=== PATIENT | female | born 1945 | race Caucasian/White ===

== ENCOUNTER 2019-07-29 08:29 | Day surgery (SDC) | payer OTHER ==
--- OUTSIDE RECORDS SUMMARY | 2019-07-29 08:34 | XMS REPORT | Encounter Summary ---
:1945 Author Care Team Providers Name Role Phone Remi Camargo MD Primary Care Provider [phone] Willem Méndez MD Primary Care Provider [phone] Reason for Visit Follow Up Visit Instructions 1. Atypical chest pain CT, chest, w/ contrast 2. Lipoma of back general surgery referral 3. Hypertensive disorder elevated blood pressure: care instructions Discussion Note: None recorded. Plan of Care Reminders Provider Appointments Return to on or around Willem Méndez MD Office 07/21/2019 Lab None recorded. Referral General 07/03/2019 Cassius Chatterjee DO Surgery Referral Procedures None recorded. Surgeries None recorded. Imaging CT, Chest, 06/11/2019 [place] W/ Contrast [facility] (Labs) (Xray) Medications Name Start Date Bystolic 10 mg tablet Take 1 tablet every day by oral route. lisinopril 20 mg tablet Take 1 tablet every day by oral route. omeprazole 40 mg capsule,delayed release Take 1 capsule every day by oral route before meals for 30 days. Medications Administered None recorded. Vitals Height Weight BMI Blood Pressure 64 in 181 lbs 16 oz 31.2 kg/m2 191/95 mm[Hg] Results Lab Results None recorded. Allergies Code Code System Name Reaction Severity Status Onset 2551 RxNorm Ciprofloxacin Nausea Mild to Active Moderate NKDA Problems Name Status Onset Date Source Left Upper Quadrant Pain Active 04/20/2019 Lipoma of Back Active 06/11/2019 Herpes Zoster Active Encounter Hypertensive Disorder Active Encounter Urinary Tract Infectious Disease Active Encounter Dysuria Active Encounter Procedures Date Name Performed by 07/08/2014 Insert/place Heart Catheter Information not available Knee Arthroscopy/surgery Information not available Appendectomy Information not available Cholecystectomy Information not available Tonsillectomy Information not available 06/11/2019 CT, Chest, W/ Contrast [facility] (Labs) ( Xray) [address] [place] [id number] (Work Place) Vaccine List None recorded. Social History Tobacco Smoking Status Never Smoker Past Encounters 06/11/2019 Atypical Chest Pain; Lipoma of Back; Hypertensive Disorder Willem Méndez MD: [address] [place] [address] [address], [place] [address], Ph. History of Present Illness Note: CC left sided chest pain<div>hpi this is pain I did ct abd and was negative pt still having daily pain starting in her back on the left side and radiating around to the chest below the left breast painful to breathe</ div><div>CC lipoma</div><div>hpi has had for yrs inleft post mid back is getting larger</div><div>ros</div><div> baljit above</div><div>cv neg</div><div>resp above</div& gt;Review of Systems: ROS as noted in the HPI Review of Systems None recorded. Physical Exam Notes: vs bp up <div>gen nad</div><div>lipoma on back below left scapula</div><div>lungs clear</div>
--- OUTSIDE RECORDS SUMMARY | 2019-07-29 08:34 | XMS REPORT | Encounter Summary ---
:1945 Author Care Team Providers Name Role Phone Remi Baker MD Primary Care Provider [phone] Reason for Visit Sick Instructions 1. Acute bronchitis Zithromax Z-Julius 250 mg tablet 2. Essential hypertension Discussion Note RTC for any other concerns Patient educational handouts: No information available. Plan of Care Patient Instructions medication as directed; push fluids and ensure rest; keep f/u with dr. baker and continue to monitor blood pressure Reminders Provider Appointments None recorded. Lab None recorded. Referral None recorded. Procedures None recorded. Surgeries None recorded. Imaging None recorded. Medications Name Start Date Bystolic 10 mg tablet Take 1 tablet every day by oral route. lisinopril 20 mg tablet Take 1 tablet every day by oral route. omeprazole 40 mg capsule,delayed release Take 1 capsule every day by oral route before meals for 30 days. Zithromax Z-Julius 250 mg tablet TAKE 2 TABLETS (500 MG) BY ORAL ROUTE ONCE DAILY FOR 1 DAY THEN 1 TABLET (250 MG) BY ORAL ROUTE ONCE DAILY FOR 4 DAYS Medications Administered None recorded. Vitals Height Weight BMI Blood Pressure 64 in 186 lbs 16 oz 32.1 kg/m2 (1) 183/79 mm[Hg] (2) 178/76 mm[Hg] Lab Results None recorded. Allergies Code Code System Name Reaction Severity Status Onset 2551 RxNorm Ciprofloxacin Nausea Mild to Active Moderate NKDA Problems Name Status Onset Date Source Herpes Zoster Active Encounter Hypertensive Disorder Active Encounter Urinary Tract Infectious Disease Active Encounter Dysuria Active Encounter Procedures Date Name Performed by 07/08/2014 Insert/[address] Heart Catheter Information not available Knee Arthroscopy/surgery Information not available Appendectomy Information not available Cholecystectomy Information not available Tonsillectomy Information not available Vaccine List None recorded. Social History Smoking Status Never Smoker Past Encounters 12/18/2018 Acute Bronchitis; Essential Hypertension Talia Barcenas SPECIAL EDUCATION TUTOR: [address] [facility], [address], [place] [address], Ph. History of Present Illness Note: pt to clinic for cough, congestion x 1 week; productive cough with thick colored phlegm; she states started as sore itchy throat; denies fever; she has been taking otc robitussin dm as needed; hx of htn; has f/u with dr. baker next week Review of Systems General Adult ROS Reported By: Patient Constitutional: Constitutional: no fever Cardiovascular: Cardiovascular: no chest pain Respiratory: Respiratory: no shortness of breath, cough, wheezing Gastrointestinal: Gastrointestinal: no abdominal pain, no vomiting, no diarrhea Physical Exam Yulissa Brief Adult Exam - M/F Reported By: Patient Constitutional: General Appearance: healthy-appearing, well-nourished, well-developed. Level of Distress: NAD. Ambulation: ambulating normally Psychiatric: Mental Status: active and alert Lungs: Auscultation: expiratory wheezing; right upper lobe Cardiovascular: Heart Auscultation: RRR, normal S1, normal S2, no murmurs Musculoskeletal: Edema absent
--- OUTSIDE RECORDS SUMMARY | 2019-07-29 08:34 | XMS REPORT | Encounter Summary ---
:1945 Author Care Team Providers Name Role Phone Remi Camargo MD Primary Care Provider [phone] Willem Méndez MD Primary Care Provider [phone] Reason for Visit sore throat; headache Instructions 1. Acute upper respiratory infection Medrol (Julius) 4 mg tablets in a dose pack 2. Hypertensive disorder Discussion Note RTC for any other concerns Patient educational handouts: No information available. Plan of Care Patient Instructions rec zyrtec daily; medrol dose julius as directed; push fluids Reminders Provider Appointments None recorded. Lab None recorded. Referral None recorded. Procedures None recorded. Surgeries None recorded. Imaging None recorded. Medications Name Start Date Bystolic 10 mg tablet Take 1 tablet every day by oral route. lisinopril 20 mg tablet Take 1 tablet every day by oral route. Medrol (Julius) 4 mg tablets in a dose pack Take as directed. omeprazole 40 mg capsule,delayed release Take 1 capsule every day by oral route before meals for 30 days. Medications Administered None recorded. Vitals Height Weight BMI Blood Pressure 64 in 187 lbs 1 oz 32.1 kg/m2 (1) 180/86 mm[Hg] (2) 166/82 mm[Hg] Lab Results None recorded. Allergies Code [...] available Vaccine List None recorded. Social History Tobacco Smoking Status Never Smoker Past Encounters 03/19/2019 Acute Upper Respiratory Infection; Hypertensive Disorder Talia Barcenas CLERK OF COURT: [address] [facility], [address], [place] [address], Ph. History of Present Illness Note: pt to clinic for congestion, sinus pressure/headache, sore throat x 4- 5 days; denies cough, fever; she has been taking coricidin x 3 days with no change in symptoms; she reports clear mucous Review of Systems General Adult ROS Reported By: Patient Constitutional: Constitutional: no fever ENMT: Ears: no ear pain. Nose: nose/sinus problems. Mouth/Throat: sore throat Cardiovascular: Cardiovascular: no chest pain Respiratory: Respiratory: no cough, no wheezing, no shortness of breath Gastrointestinal: Gastrointestinal: no abdominal pain, no vomiting, no diarrhea Endocrine: Endocrine: no fatigue Allergic/Immunologic: Allergy/Immunologic: no runny nose, sinus pressure Physical Exam Yulissa Brief Adult Exam - M/F Reported By: Patient Constitutional: General Appearance: healthy-appearing, well-nourished, well-developed. Level of Distress: NAD. Ambulation: ambulating normally Psychiatric: Mental Status: active and alert ENMT: Ears: EACs clear, TMs clear. Nose: nasal passages clear. Oropharynx: moist mucous membranes, no exudates, erythema Neck: Lymph Nodes: no cervical LAD Lungs: Auscultation: breath sounds normal Cardiovascular: Heart Auscultation: RRR, normal S1, normal S2, no murmurs
--- OUTSIDE RECORDS SUMMARY | 2019-07-29 08:34 | XMS REPORT | Encounter Summary ---
:1945 Author Care Team Providers Name Role Phone Remi Camargo MD Primary Care Provider [phone] Willem Méndez MD Primary Care Provider [phone] Reason for Visit Follow Up Visit Instructions 1. Left upper quadrant pain CT, abdomen + pelvis, w/ contrast CBC w/ auto diff CMP, serum or plasma urinalysis, complete Discussion Note: None recorded.Patient educational handouts: No information available. Plan of Care Reminders Provider Appointments Return to on or around Willem Méndez MD Office 07/21/2019 Lab CBC W/ Auto 04/20/2019 [place] Diff [facility] (Labs) (Xray) CMP, Serum 04/20/2019 [place] or Plasma [facility] (Labs) (Xray) Urinalysis, 04/20/2019 [place] Complete [facility] (Labs) (Xray) Referral None recorded. Procedures None recorded. Surgeries None recorded. Imaging CT, Abdomen 04/20/2019 [place] + Pelvis, W/ Contrast [facility] (Labs) (Xray) Medications Name Start Date Bystolic 10 mg tablet Take 1 tablet every day by oral route. lisinopril 20 mg tablet Take 1 tablet every day by oral route. omeprazole 40 mg capsule,delayed release Take 1 capsule every day by oral route before meals for 30 days. Medications Administered None recorded. Vitals Height Weight BMI Blood Pressure 64 in 184 lbs 31.6 kg/m2 179/87 mm[Hg] Results Lab Results None recorded. Allergies Code Code System Name Reaction Severity Status Onset 2551 RxNorm Ciprofloxacin Nausea Mild to Active Moderate NKDA Problems Name Status Onset Date Source Left Upper Quadrant Pain Active 04/20/2019 Herpes Zoster Active Encounter Hypertensive Disorder Active Encounter Urinary Tract Infectious Disease Active Encounter Dysuria Active Encounter Procedures Date Name Performed by 07/08/2014 Insert/[address] Heart Catheter Information not available Knee Arthroscopy/surgery Information not available Appendectomy Information not available Cholecystectomy Information not available Tonsillectomy Information not available 04/20/2019 CT, Abdomen + Pelvis, W/ Contrast [facility] (Labs) (Xray) [address] [facility], [place] [id number] (Work Place) Vaccine List None recorded. Social History Tobacco Smoking Status Never Smoker Past Encounters 04/20/2019 Left Upper Quadrant Pain Willem Méndez MD: [address] [place] [address] [address], [place] [address], Ph. History of Present Illness Note: CC chronic LUQ pain<div>hpi has had for some time and had US that was neg is concerned itmight be her kidney as it goes to the back at times& lt;/div><div>ros</div><div>gen healthy</div><div& gt;cv neg</div><div>resp neg</div><div>gi no bm issues does not have appendix or gall bladder</div>Review of Systems: ROS as noted in the HPI Review of Systems None recorded. Physical Exam Notes: vs wnl<div>gen nad</div><div>heart wnl</div><div>lungs wnl</div><div >abd uncomfortable LUQ no masses or acute tenderness</div>
--- OUTSIDE RECORDS SUMMARY | 2019-07-29 08:34 | XMS REPORT | Encounter Summary ---
:1945 Author Care Team Providers Name Role Phone Remi Camargo MD Primary Care Provider [phone] Willem Méndez MD Primary Care Provider [phone] Reason for Visit New Patient Instructions 1. Lipoma of back excision, tumor, soft tissue of back/flank (SURG) 2. Pre-surgery evaluation cardiac clearance - Patient needs a cardiac clearance prior to surgery. Please schedule patient. Fax clearance to [phone]. Thank you. Discussion Note: None recorded.Patient educational handouts: No information available. Plan of Care Patient Instructions Stop all blood thinners 5 days prior to procedure. Nothing by mouth after midnight. Patient must have a responsible licensed maintenance truck driver to accompany home after surgery. Only take blood pressure medication the morning of the procedure with sip of water. [facility] scheduling department will contact to schedule pre op date & time. [facility] pre op nurse will inform you time of arrival Reminders Provider Appointments Return to on or around Willem Méndez MD Office 07/21/2019 Lab None recorded. Referral None recorded. Procedures None recorded. Surgeries Excision, 07/17/2019 Tumor, Soft Tissue of Back/flank (SURG) Imaging None recorded. Medications Name Start Date Bystolic 10 mg tablet Take 1 tablet every day by oral route. lisinopril 20 mg tablet Take 1 tablet every day by oral route. omeprazole 40 mg capsule,delayed release Take 1 capsule every day by oral route before meals for 30 days. Medications Administered None recorded. Vitals Height Weight BMI Blood Pressure 5 ft 4 in 182 lbs 31.2 kg/m2 170/80 mm[Hg] Results Lab Results Date Name Specimen Result Interpretation Description Value Range Status Address 06/18/2019 Creatinine, Normal Creatinine 0.7 0.50-0.90 Final [place] Serum or mg/dL mg/dL [facility] (Lab): [address] [facility] 06/18/2019 GFR, Normal Glomerular >60.00 Final [place] [facility] (eGFR), Serum Rate [facility] (Lab): [address] [facility] Allergies Code Code System Name Reaction Severity [...] Tobacco Smoking Status Never Smoker Past Encounters 07/16/2019 Lipoma of Back; Pre-surgery Evaluation Cassius Chatterjee, DO: [address] [facility] [address], [place] [address], Ph. [phone] History of Present Illness Skin Lesion Reported By: Patient HPI: Location: back. Quality: painful, tender. Severity: moderate. Duration: not sure. Onset/Timing: gradual. Context: no known trigger. Associated Symptoms: no fever, no cold symptoms, no nausea, no vomiting, no diarrhea, no urinary symptoms, no skin flakes, no scabbing, no bruising, no draining, no lesions multiplying, no lesions spreading Review of Systems General Surgery ROS Reported By: Patient Constitutional: Constitutional: no fever, no night sweats, no significant weight gain, no significant weight loss, no exercise intolerance Eyes: Eyes: no dry eyes, no irritation, no vision change ENMT: Ears: no difficulty hearing, no ear pain. Nose: no frequent nosebleeds, no nose/sinus problems. Mouth/Throat: no sore throat, no bleeding gums, no snoring, no dry mouth, no mouth ulcers, no oral abnormalities, no teeth problems, No Post Nasal Dripping, Constantly clearing the throat, hiccups, itching throat, (normal) weak voice: constant Respiratory: Respiratory: no cough, no wheezing, no shortness of breath, no coughing up blood Cardiovascular: Cardiovascular: no chest pain, no arm pain on exertion, no shortness of breath when walking, no shortness of breath when lying down, no palpitations, no known heart murmur Gastrointestinal: Gastrointestinal: no abdominal pain, no vomiting, normal appetite, no diarrhea, not vomiting blood Genitourinary: Genitourinary: no incontinence, no difficulty urinating, no hematuria, no increased frequency Musculoskeletal: Musculoskeletal: no muscle aches, no muscle weakness, no arthralgias/joint pain, no back pain, no swelling in the extremities Integumentary: Skin: no abnormal mole, no jaundice, no rashes Neurologic: Neurologic: no loss of consciousness, no weakness, no numbness, no seizures, no dizziness, no headaches Physical Exam General Surgery Exam ([place]) Reported By: Patient Head: Head: normocephalic, atraumatic Neck: Neck: no enlargement, no jugular venous distention, no lymphadenopathy Breast/Thorax: Breast: unlabored Cardiovascular: Heart Auscultation: regular rate and rhythm, no murmurs, no gallops, no rubs Lungs: CTAB breath sounds normal, good air movement, clear to auscultation, no wheezing, no rales/crackles, no rhonchi Back: Lumbar / Lumbosacral Spine normal flexion, normal extension, no spasms, palpation tenderness none; Lipoma of left mid back Abdomen: Inspection and Palpation: soft, non-distended, no tenderness, no masses. Hernia: none palpable Neurologic: Cranial Nerves: grossly intact
--- OUTSIDE RECORDS SUMMARY | 2019-07-29 08:34 | XMS REPORT | Encounter Summary ---
:1945 Author Reason for Visit possible UTI Instructions 1. Urinary tract infectious disease urinalysis, dipstick Macrobid 100 mg capsule Discussion Note RTC for any other concerns Patient educational handouts: No information available. Plan of Care Patient Instructions medication as directed; push fluids and ensure rest Reminders Provider Appointments None recorded. Lab Urinalysis, In-House Results Dipstick 09/30/2018 Referral None recorded. Procedures None recorded. Surgeries None recorded. Imaging None recorded. Medications Name Start Date Bystolic 10 mg tablet Take 1 tablet every day by oral route. lisinopril 20 mg tablet Take 1 tablet every day by oral route. Macrobid 100 mg capsule Take 1 capsule every 12 hours by oral route as directed for 7 days. omeprazole 40 mg capsule,delayed release Take 1 capsule every day by oral route before meals for 30 days. Medications Administered None recorded. Vitals Height Weight BMI Blood Pressure 64 in 185 lbs 31.8 kg/m2 161/91 mm[Hg] Lab Results None recorded. Allergies Code [...] History Smoking Status Never Smoker Past Encounters 09/30/2018 Urinary Tract Infectious Disease Talia Barcenas REGISTERED NURSE RENAL: [address] [facility], [address], [place] [address], Ph. History of Present Illness Note: pt to clinic for back pain, frequency of urination, and dysuria x 2 days; she has taken azo Review of Systems General Adult ROS Reported By: Patient Constitutional: Constitutional: no fever Cardiovascular: Cardiovascular: no chest pain Respiratory: Respiratory: no cough, no wheezing, no shortness of breath Gastrointestinal: Gastrointestinal: no abdominal pain, no vomiting, no diarrhea Genitourinary: Genitourinary: difficulty urinating, increased urinary frequency Endocrine: Endocrine: no fatigue Physical Exam Yulissa Brief Adult Exam - M/F Reported By: Patient Constitutional: General Appearance: healthy-appearing, well-nourished, well-developed. Level of Distress: NAD. Ambulation: ambulating normally Psychiatric: Mental Status: active and alert Lungs: Auscultation: breath sounds normal Cardiovascular: Heart Auscultation: RRR, normal S1, normal S2, no murmurs Abdomen: Bowel Sounds: normal. Inspection and Palpation: soft, non-distended, no guarding, no CVA tenderness, suprapubic tenderness
--- OUTSIDE RECORDS SUMMARY | 2019-07-29 08:34 | XMS REPORT ---
:1945 [facility] Zenon Osborne [address] [place] [address] Care Team Providers Name Role Phone EUSEBIA WEBBER Primary Care Provider Unavailable EUSEBIA WEBBER Unavailable Unavailable Problems This patient has no known problems. Allergies, Adverse Reactions, Alerts This patient has no known allergies or adverse reactions. Medications This patient has no known medications. Encounters Start End Encounter Admission Attending Care Care Encounter Date/Time Date/Time Type Type Clinicians Facility Department ID 2017-09-30 2017-09-30 Outpatient [facility] [id number] 21:17:00 21:17:00 EUSEBIA Results Test Description Test Time Test Comments Text Results Atomic Results Result Comments Comprehensive Metabolic Panel 2017-09-30 22:44:00 Test Item Value Reference Range Comments Sodium (test code=NA) 142 mmol/L 135-145 Potassium (test code=K) 4.3 mmol/L 3.5-5.1 Chloride (test code=CL) 101 mmol/L 98-105 Carbon Dioxide (test 26 mmol/L 22-29 code=CO2) Glucose (test code=GLU) 94 mg/dL 70-115 Blood Urea Nitrogen (test 10 mg/dL 8-23 code=BUN) Creatinine (test code=CREAT) 0.6 mg/dL 0.5-0.9 Calcium (test code=CA) 9.9 mg/dL 8.3-10.5 Prot Total (test code=TP) 7.0 g/dL 6.4-8.3 Albumin (test code=ALB) 4.4 g/dL 3.5-5.2 A/G Ratio (test 1.7 Ratio code=AGRATIO) Globulin (test code=GLOB) 2.6 2.9-3.1 Bili Total (test code=TBIL) 0.4 mg/dL 0.1-0.9 Alk Phos (test code=APHOS) 99 U/L 35-104 AST (test code=AST) 21 U/L 1-32 ALT (test code=ALT) 23 U/L 1-33 BUN/Creatinine Ratio (test 16.7 code=BCRATIO) Anion Gap (test code=AGAP) 15 mmol/L 7-16 Estimated GFR (test >60 mL/min/1.73m2 eGFR (estimated Glomerular code=GFR) Filtration Rate) is an estimated value,calculated from the patient's serum creatinine using the MDRD equation.It is NOT the patient's actual GFR. The eGFR provides a more clinicallyuseful measure of kidney disease than serum creatinine alone.This calculation takes sex and race into account, if the informationis provided. If the race is not provided, and the patient isAfrican-Macedonian, multiply by 1.212. If sex is not provided, and thepatient is female, multiply by 0.742. Results for patients <18 years ofage have not been validated by the MDRD study and should be interpretedwith caution.eGFR Result Interpretation:eGFR > or=60 is in the Normal RangeeGFR < 60 may mean kidney diseaseeGFR < 15 may mean kidney failureRanges recommended by the National Kidney Foundation,http://nkdep.nih.go v Lipid [id number] 22:44:00 Test Item Value Reference Range Comments Cholesterol (test 262 mg/dL 0-200 code=CHOL) Triglycerides (test 119 mg/dL 9-200 code=TRIG) HDL (test code=HDL) 75 mg/dL 50-60 Chol/HDL (test 3.5 Ratio 0.0-4.4 code=CHOLPHDL) LDL, Calculated (test 163 mg/dL 0-130 (NOTE)RISK OF HEART code=LDLC) DISEASEPublished by [place] Heart AssociationAnalyte Optimal Boderline Increased RiskCHOL <200 200-239 >240TRIG <150 150-199 >200HDL Male: >60 <40HDL Female: >60 <50LDL <100 130-159 >160LDL NEAR OPTIMAL IS 100-129 VLDL (test code=VLDL) 24 mg/dL 5-40 LDL/HDL (test code=LDLPHDL) 2 [id number] 22:44:00 Test Item Value Reference Range Comments NT ProBnp (test code=PBNP) 43 pg/mL 0-124 CBC with [id number] 22:44:00 Test Item Value Reference Range Comments WBC (test code=WBC) 4.1 K/cumm 4.4-10.5 RBC (test code=RBC) 5.01 M/cumm 3.75-5.20 Hemoglobin (test code=HGB) 14.0 gm/dL 12.2-14.8 Hematocrit (test code=HCT) 45.0 % 36.5-44.4 MCV (test code=MCV) 89.8 fL 80-100 MCH (test code=MCH) 28.0 pg 27.0-32.5 MCHC (test code=MCHC) 31.2 g/dL 32.0-37.5 RDW (test code=RDW) 13.2 % 11.5-14.5 Platelet Count (test code=PLTCT) 346 K/cumm 140-440 MPV (test code=MPV) 10.3 fL Diff Method (test code=DIFFM) Auto Neutrophil (test code=NEUT) 58.2 % 36-70 Lymphocyte (test code=LYMPH) 30.5 % 12-44 Monocyte (test code=MONO) 8.0 % 0-11 Eosinophil (test code=EOS) 2.0 % 0-7 Basophil (test code=BASO) 1.3 % 0-2 Neutro Abs (test code=ANEUT) 2.4 K/cumm 1.6-7.4 Lymph Abs (test code=ALYMPH) 1.3 K/cumm 0.5-4.6 [place] Abs (test code=AMONO) 0.3 K/cumm 0.0-1.2 Eos Abs (test code=AEOS) 0.08 K/cumm 0.00-0.74 Baso Abs (test code=ABASO) 0.1 K/cumm 0.00-0.21 T3 [id number] 23:59:00 Test Item Value Reference Range Comments T3, Uptake (test code=T3U) 32 % 28-41 Hepatic Function [id number] 23:52:00 Test Item Value Reference Range Comments Prot Total (test code=TP) 7.1 g/dL 6.4-8.3 Albumin (test code=ALB) 4.3 g/dL 3.5-5.2 A/G Ratio (test code=AGRATIO) 1.5 Ratio Globulin (test code=GLOB) 2.8 2.9-3.1 Bili Total (test code=TBIL) 0.5 mg/dL 0.1-0.9 Bili Direct (test code=DBIL) <0.2 mg/dL 0.0-0.3 Bili Indirect (test code=IBIL) 0.4 Alk Phos (test code=APHOS) 97 U/L 35-104 AST (test code=AST) 22 U/L 1-32 ALT (test code=ALT) 21 U/L 1-33 Lipid [id number] 23:52:00 Test Item Value Reference Range Comments Cholesterol (test 262 mg/dL 0-200 code=CHOL) Triglycerides (test 155 mg/dL 9-200 code=TRIG) HDL (test code=HDL) 67 mg/dL 50-60 Chol/HDL (test 3.9 Ratio 0.0-4.4 code=CHOLPHDL) LDL, Calculated (test 164 0-130 (NOTE)RISK OF HEART code=LDLC) DISEASEPublished by [place] Heart AssociationAnalyte Optimal Boderline Increased RiskCHOL <200 200-239 >240TRIG <150 150-199 >200HDL Male: >60 <40HDL Female: >60 <50LDL <100 130-159 >160LDL NEAR OPTIMAL IS 100-129 VLDL (test code=VLDL) 31 mg/dL 5-40 LDL/HDL (test code=LDLPHDL) 2 Comprehensive Metabolic [id number] 23:52:00 Test Item Value Reference Range Comments Sodium (test code=NA) 137 mmol/L 135-145 Potassium (test code=K) 4.1 mmol/L 3.5-5.1 Chloride (test code=CL) 99 mmol/L 98-105 Carbon Dioxide (test 27 mmol/L 22-29 code=CO2) Glucose (test code=GLU) 102 mg/dL 70-115 Blood Urea Nitrogen 11 mg/dL 8-23 (test code=BUN) Creatinine (test 0.7 mg/dL 0.5-0.9 code=CREAT) Calcium (test code=CA) 10.0 mg/dL 8.3-10.5 Prot Total (test 7.1 g/dL 6.4-8.3 code=TP) Albumin (test code=ALB) 4.3 g/dL 3.5-5.2 A/G Ratio (test 1.5 Ratio code=AGRATIO) Globulin (test 2.8 2.9-3.1 code=GLOB) Bili Total (test 0.5 mg/dL 0.1-0.9 code=TBIL) Alk Phos (test 97 U/L 35-104 code=APHOS) AST (test code=AST) 22 U/L 1-32 ALT (test code=ALT) 21 U/L 1-33 BUN/Creatinine Ratio 15.7 (test code=BCRATIO) Anion Gap (test 11 mmol/L 7-16 code=AGAP) Estimated GFR (test >60 mL/min/1.73m2 eGFR (estimated Glomerular code=GFR) Filtration Rate) is an estimated value,calculated from the patient's serum creatinine using the MDRD equation.It is NOT the patient's actual GFR. The eGFR provides a more clinicallyuseful measure of kidney disease than serum creatinine alone.This calculation takes sex and race into account, if the informationis provided. If the race is not provided, and the patient isAfrican-Macedonian, multiply by 1.212. If sex is not provided, and thepatient is female, multiply by 0.742. Results for patients <18 years ofage have not been validated by the MDRD study and should be interpretedwith caution.eGFR Result Interpretation:eGFR > or=60 is in the Normal RangeeGFR < 60 may mean kidney diseaseeGFR < 15 may mean kidney failureRanges recommended by the National Kidney Foundation,http://nkdep.nih .gov Thyroxine (T4)2017-05-09 23:52:00 Test Item Value Reference Range Comments T4, Total (test code=TT4) 5.1 ug/dL 4.6-12.0 Thyroid Stimulating Hormone (TSH)2017-05-09 23:52:00 Test Item Value Reference Range Comments TSH (test code=TSH) 5.72 mIU/mL 0.270-4.200 CBC with [id number] 23:33:00 Test Item Value Reference Range Comments WBC (test code=WBC) 6.2 K/cumm 4.4-10.5 RBC (test code=RBC) 4.70 M/cumm 3.75-5.20 Hemoglobin (test code=HGB) 13.9 gm/dL 12.2-14.8 Hematocrit (test code=HCT) 41.4 % 36.5-44.4 MCV (test code=MCV) 88.1 fL 80-100 MCH (test code=MCH) 29.5 pg 27.0-32.5 MCHC (test code=MCHC) 33.5 g/dL 32.0-37.5 RDW (test code=RDW) 12.5 % 11.5-14.5 Platelet Count (test code=PLTCT) 368 K/cumm 140-440 MPV (test code=MPV) 8.8 fL Diff Method (test code=DIFFM) Auto Neutrophil (test code=NEUT) 67.4 % 36-70 Lymphocyte (test code=LYMPH) 23.8 % 12-44 Monocyte (test code=MONO) 6.5 % 0-11 Eosinophil (test code=EOS) 1.4 % 0-7 Basophil (test code=BASO) 1.0 % 0-2 Neutro Abs (test code=ANEUT) 4.2 K/cumm 1.6-7.4 Lymph Abs (test code=ALYMPH) 1.5 K/cumm 0.5-4.6 [place] Abs (test code=AMONO) 0.4 K/cumm 0.0-1.2 Eos Abs (test code=AEOS) 0.08 K/cumm 0.00-0.74 Baso Abs (test code=ABASO) 0.1 K/cumm 0.00-0.21
[2019-07-29 08:35] LABS: Absolute Lymphocytes (CBC) 1.2 K/uL (0.7-4.9); Basophils % 1.5 % (0-1.3); Hematocrit 43.8 % (36.0-45.0); Lymphocytes % 24.4 % (15.3-44.8); MPV 7.2 fL (7.6-11.3); RBC Red Blood Cell Count 5.09 M/uL (3.86-4.86)
[2019-07-29 08:53] LABS: Potassium 3.9 mmol/L (3.5-5.1)
[2019-07-29] MEDS ORDERED: CEFAZOLIN/SWI 1gm 1 GM/10 ML SYR ONE (09:01)
[2019-07-29] MEDS ORDERED: Ringers Lactate 1,000 ML IV ONE (09:01)
--- NOTE | 2019-07-29 09:03 | RAD REPORT ---
EXAM DESCRIPTION: Jonathan Bailey (2 Views)07/29/2019 8:23 am CLINICAL HISTORY: Preop to remove a mass COMPARISON: None FINDINGS: The lungs appear clear of acute infiltrate. The heart is normal size IMPRESSION: No acute abnormalities displayed
[2019-07-29] MEDS ORDERED: FENTANYL CITR 100 MCG/2 ML ONE (10:08)
[2019-07-29] MEDS ORDERED: MIDAZOLAM HCL 2 MG/2 ML INJ ONE (10:08)
[2019-07-29] MEDS ORDERED: propofoL 200 MG/20 ML VIAL IV ONE (10:08)
[2019-07-29] MEDS ORDERED: Phenylephrine HCl 10 MG/ML 1 ML VIAL ONE (10:40)
[2019-07-29] MEDS ORDERED: GLYCOPYRROLATE 0.2 MG/ML SYR ONE ×2 (10:43→10:45)
--- NOTE | 2019-07-29 10:49 | P.BOP ---
Preoperative diagnosis: left upper fatback trimmer back mass Postoperative diagnosis: left upper fatback trimmer back mass INTRAMUSCULAR Primary procedure: Excisional biopsy of left upper fatback trimmer INTRAMUSCULAR back mass 9x6cm Turn Operator: SHONA SCHWARTZ (CERTIFIED ORTHOTIST PRACTICE MANAGER) Estimated blood loss: <10cc Specimen: mass Findings: INTRAMUSCULAR mass Anesthesia: General Complications: None Transferred to: Recovery Room Condition: Good
[2019-07-29] MEDS ORDERED: ONDANSETRON 4 MG/2 ML VIAL ONE (11:31)
[2019-07-29] MEDS ORDERED: CODEINE 30MG/APAP 300MG TAB ONE (11:58)
[2019-07-29 12:03] VITALS: BP 154/47; TEMP 97.6; O2SAT 100
--- NOTE | 2019-07-29 13:59 | EKG ---
Test Date: 2019-07-29 Test Time: 08:22:26 Button Sewer Hand: ARPIT MEASUREMENT RESULTS: Intervals: Rate: 57 SD: 172 QRSD: 164 QT: 450 QTc: 438 [place]: P: 45 SD: 172 QRS: -27 T: 104 INTERPRETIVE STATEMENTS: Sinus bradycardia Possible Left atrial enlargement Left bundle branch block Abnormal ECG No previous ECG available for comparison Electronically Signed On 07-29-19 13:58:14 CONTACT CENTER MANAGER by Alfred Brizuela
--- NOTE | 2019-07-29 20:07 | OP ---
Date of Procedure: 07/29/2019 Surgeon: Maciej Sheffield MD Clothes Ironer: Zenaida Durán. Preoperative Diagnosis: Left upper back wedger subcutaneous mass. Postoperative Diagnosis: Left upper back wedger intramuscular back mass. Procedure: Excisional biopsy of left upper back intramuscular back mass 9 x 6 cm. Specimen: Mass. Findings: Even though originally this feel subcutaneous once we went inside and make an incision. W e noticed this intramuscular mass. Anesthesia: General plus local. Indications: This is the case of a 74-year-old patient who comes with a mass over the back area. It is tender. It is increasing in size, giving her pain and discomfort. She wants that excised. The benefits, alternatives, and risks of excision fully explained which include, but not limited to infec tion, bleeding, damage to adjacent structures, anesthesia complication, recurrence, MT, and even deat h. She also understands this may not relieve the symptoms. She might need more than one surgical in tervention. She understood, signed a consent. Description Of Procedure: Patient was brought to the operating room, placed in supine position. Ane sthesia was done without complication. The area of concern was marked by me and the patient in the h olding room previously. The patient was placed in lateral decubitus position with proper protection. The back and flank area were prepped and draped in a sterile fashion. Local anesthesia was applied . Time-out was called before that. Incision was made in that area. We noticed we went to the subcu taneous tissue. Then, we went to deep subcutaneous tissue and then the mass lies on the muscle itsel f, intramuscular. So, we carefully with blunt dissection used to split the fibers of the muscle and then once we have the fibers along the fibers open, then we were able to find out the mass and with b jamison dissection, removed from the rest of the subcutaneous tissue, and then it was enucleated out wit hout any resistance. Hemostasis obtained. The muscle fibers were allowed to retract back into the n ormal position. We secured the plate with 3-0 chromic. Irrigation was done. The fascia was closed with 3-0 chromic and then subcutaneous with 3-0 chromic and then the 4-0 PDS for the skin. Sponge co unt and instrument counts were correct. Patient tolerated the procedure well. Patient was sent to [facility] in stable condition. HM/MODL Voice ID: [id number] Report ID: [id number]
--- NOTE | 2019-07-29 20:13 | DS ---
Date of Discharge: 07/29/2019 Diagnosis: Intramuscular back mass. Procedure: Excisional biopsy of intramuscular back mass. Disposition: Home. Activities: As tolerated. No heavy lifting. Followup: Follow up in my office in 1 week. Call for appointment [phone]. Keep area dry for 48 ho urs, then may shower. Keep Steri-Strips intact. Patient advised to use Dominguez wrap as a compression dr essing to minimize the chance of seroma. BRUCE/RUBI Voice ID: [id number] Report ID: [id number]
== END 2019-07-29 12:55 | disposition home or self-care (01) ==
LOC: OR 08:29
PROVIDERS: ATTEND Surgery
PROC: 0KBG0ZZ Excision of Left Trunk Muscle, Open Approach (ICD-10-PCS; principal; 2019-07-29 10:30)
DX: D17.9 Benign lipomatous neoplasm, unspecified (principal); I10 Essential (primary) hypertension; K21.9 Gastro-esophageal reflux disease without esophagitis
CPT/HCPCS: 36415; 71046; 80048; 85025; 88304; 93005; J0690; J2250; J2370; J2405; J2704; J3010; J7120